=== PATIENT | female | born 2000 ===

== ENCOUNTER 2022-10-02 01:18 | Inpatient (IN) | payer MEDICAID ==
[2022-10-02] MEDS ORDERED: Carboprost Tromethamine 250 MCG/1 ML Amp IM PRN (21:41)
[2022-10-02] MEDS ORDERED: Methylergonovine 0.2 MG/1 ML Amp IM PRN (21:41)
[2022-10-02] MEDS ORDERED: Water For Irrigation,Sterile 1,000 ML Container IRR PRN (21:41)
[2022-10-02] MEDS ORDERED: Misoprostol 25 MCG (1/4 of 100 MCG) Tab VAG PRN (21:41)
[2022-10-02] MEDS ORDERED: Sodium Chloride 0.9% 2.5 ML Syringe FLUSH PRN (21:41)
[2022-10-02] MEDS ORDERED: Sodium Chloride 0.9% 20 ML SDV IV PRN (21:41)
[2022-10-02] MEDS ORDERED: Tranexamic Acid 1,000 MG in Sodium Chloride 0.9% 100 ML IV PRN (21:41)
[2022-10-02] MEDS ORDERED: Lidocaine 1% 50 ML MDV INJECT PRN (21:41)
[2022-10-02] MEDS ORDERED: Misoprostol 200 MCG Tab PO PRN (21:41)
[2022-10-02] MEDS ORDERED: Sodium Chloride 0.9% 10 ML Syringe FLUSH PRN (21:41)
[2022-10-02] MEDS ORDERED: Butorphanol 1 MG/ML SDV IVPUSH PRN (21:41)
[2022-10-02] MEDS ORDERED: Terbutaline 1 MG/ML SDV SUBCUT PRN (21:41)
[2022-10-02] MEDS ORDERED: Oxytocin/0.9 % Sodium Chloride 30 UNIT/500 ML BAG IV SCH ×2 (21:45)
[2022-10-03] MEDS: Misoprostol 25 MCG (1/4 of 100 MCG) Tab VAG PRN ×2 (04:18→08:30)
[2022-10-03] MEDS: Lactated Ringers 1,000 ML IV SCH ×2 (08:22→22:31)
[2022-10-03] MEDS ORDERED: Ropivacaine/PF 400 MG/200 ML PCA ONE (20:58)
[2022-10-03] MEDS ORDERED: ePHEDrine 50 MG/ML SDV IVPUSH PRN (21:31)
[2022-10-03] MEDS ORDERED: Phenylephrine HCl In 0.9% NaCl 1 MG/10 ML Vial IVPUSH PRN (21:31)
[2022-10-03] MEDS ORDERED: Ropivacaine HCl/PF 400 MG in Premix Bag 1 BAG EPIDUR SCH (21:45)
[2022-10-04] MEDS ORDERED: Oxytocin 10 Units/1 ML SDV IM ONE (01:47)
[2022-10-04] MEDS ORDERED: Oxytocin 10 Units/1 ML SDV ONE (01:49)
[2022-10-04] MEDS ORDERED: Benzocaine/Menthol 20%-0.5% Spray 78 GM Cannister TOP PRN (01:52)
[2022-10-04] MEDS ORDERED: Bisacodyl 10 MG Supp RECTAL PRN (01:52)
[2022-10-04] MEDS ORDERED: Witch Hazel Medicated Pads 40/Jar TOP PRN (01:52)
[2022-10-04] MEDS ORDERED: oxyCODONE 5 MG Tab PO PRN (01:52)
[2022-10-04] MEDS ORDERED: Lanolin 100% Cream 7 GM Tube TOP PRN (01:52)
[2022-10-04] MEDS ORDERED: Ibuprofen 400 MG Tab PO PRN (01:52)
[2022-10-04] MEDS ORDERED: Acetaminophen 500 MG Tab PO PRN ×2 (01:52)
[2022-10-04] MEDS: Ibuprofen 800 MG Tab PO PRN (08:16)
[2022-10-04] MEDS: Docusate Sodium 100 MG Cap PO PRN (08:16)
[2022-10-05] MEDS: Ibuprofen 800 MG Tab PO PRN (04:54)
[2022-10-05] MEDS: Docusate Sodium 100 MG Cap PO PRN (05:01)
== END 2022-10-05 16:05 | disposition home or self-care (01) | DRG 807 ==
LOC: MW.OB 01:18 → OBSVTOIN 10-04 01:18 → MW.OB 10-04 05:52
PROVIDERS: ADMIT Obstetrics & Gynecology; ATTEND Obstetrics & Gynecology
PROC: 10E0XZZ Delivery of Products of Conception, External Approach (ICD-10-PCS; principal; 2022-10-04)
PROC: 0HQ9XZZ Repair Perineum Skin, External Approach (ICD-10-PCS; 2022-10-04)
PROC: 3E0P7VZ Introduction of Hormone into Female Reproductive, Via Natural or Artificial Opening (ICD-10-PCS; 2022-10-04)
PROC: 3E0R3BZ Introduction of Anesthetic Agent into Spinal Canal, Percutaneous Approach (ICD-10-PCS; 2022-10-04)
PROC: 00HU33Z Insertion of Infusion Device into Spinal Canal, Percutaneous Approach (ICD-10-PCS; 2022-10-04)
DX: O36.5930 Maternal care for other known or suspected poor fetal growth, third trimester, not applicable or unspecified (principal); Z37.0 Single live birth; Z3A.39 39 weeks gestation of pregnancy; Z87.01 Personal history of pneumonia (recurrent); O70.0 First degree perineal laceration during delivery; Z20.822 Contact with and (suspected) exposure to COVID-19
CPT/HCPCS: 36415; 82803; 85014; 85018; 85027; 86592; 86850; 86900; 86901; A9270-GY; J2590; J2795; J7120; U0002